=== PATIENT | female | born 1945 | race African-American/Black ===

== ENCOUNTER 2022-07-23 18:34 | Emergency (ER) | payer MEDICARE ==
[~2022-07-23] VITALS: Ht 160 cm; Wt 96.0 kg
[2022-07-23 20:25] LABS: BASOPHILS % 0.9 % (0.0-2.0); HEMATOCRIT. 29.1 % (36.0-48.0); HEMOGLOBIN. 9.4 g/dL (12.0-16.0); LYMPHOCYTES % 19.6 % (20.0-50.0); MEAN CORPUSCULAR HEMOGLOBIN 26.4 pg (28.0-32.0); MEAN CORPUSCULAR VOLUME 82.4 fL (81.0-99.0); MEAN PLATELET VOLUME 9.7 fl (7.4-10.4); NEUTROPHILS % 64.5 % (40.0-76.0); PLATELET 235 x1000/uL (130-400); RED BLOOD CELL COUNT 3.54 mill/uL (4.2-5.4); RED CELL DISTRIBUTION WIDTH 15.9 % (11.6-14.6)
[2022-07-23 20:32] LABS: CHLORIDE 110 mEq/L (98-107)
[2022-07-23 21:32] VITALS: BP 148/74
== END 2022-07-23 21:48 | disposition home or self-care (01) ==
LOC: ER 18:34
DX: I12.9 Hypertensive chronic kidney disease with stage 1 through stage 4 chronic kidney disease, or unspecified chronic kidney disease (principal); E11.22 Type 2 diabetes mellitus with diabetic chronic kidney disease; N18.9 Chronic kidney disease, unspecified; S80.11XA Contusion of right lower leg, initial encounter; X58.XXXA Exposure to other specified factors, initial encounter; Y93.89 Activity, other specified; Y92.89 Other specified places as the place of occurrence of the external cause; Y99.8 Other external cause status
CPT/HCPCS: 36415; 71045; 73590; 80053; 83880; 84443; 84484; 85025; 93005; 99285

== ENCOUNTER 2023-01-15 17:21 | Emergency (ER) | payer MEDICARE, OTHER ==
[~2023-01-15] VITALS: Ht 167.6 cm; Wt 97.0 kg
[2023-01-15 17:47] VITALS: O2SAT 100
[2023-01-15 18:19] LABS: BASOPHILS % 0.9 % (0.0-2.0); EOSINOPHILS % 3.2 % (0.0-5.0); HEMATOCRIT. 33.1 % (36.0-48.0); HEMOGLOBIN. 10.4 g/dL (12.0-16.0); MEAN CORPUSCULAR HEMOGLOBIN 26.1 pg (28.0-32.0); MEAN CORPUSCULAR HGB CONC 31.5 g/dL (31.0-37.0); MEAN CORPUSCULAR VOLUME 82.7 fL (81.0-99.0); MEAN PLATELET VOLUME 10.1 fl (7.4-10.4); MONOCYTES % 10.8 % (2.0-8.0); NEUTROPHILS % 64.1 % (40.0-76.0); PLATELET 263 x1000/uL (130-400); RED CELL DISTRIBUTION WIDTH 15.5 % (11.6-14.6)
[2023-01-15 18:26] LABS: CALCIUM 9.8 mg/dL (8.5-10.1); POTASSIUM 4.3 mEq/L (3.5-5.1)
[2023-01-15 18:33] LABS: CREATININE 1.9 mg/dL (0.6-1.3)
[2023-01-15] MEDS ORDERED: APIX5TAB MT (20:27)
[2023-01-15] MEDS ORDERED: ENOXAPARIN 100MG/ML SYR SUBCUT NR (20:30)
[2023-01-15 20:53] VITALS: BP 156/110; PULSE 61; RESP 12; TEMP 98.5
== END 2023-01-15 20:55 | disposition home or self-care (01) ==
LOC: ER 18:28
DX: R60.0 Localized edema (principal); E11.9 Type 2 diabetes mellitus without complications; I10 Essential (primary) hypertension
CPT/HCPCS: 36415; 80048; 85025; 85379; 93970; 99284

== ENCOUNTER 2024-08-18 18:30 | Emergency (ER) | payer MEDICARE, OTHER ==
[~2024-08-18] VITALS: Ht 167.6 cm; Wt 107.0 kg
[~2024-08-18 18:30] MED LIST: APIX5TAB MT
[2024-08-18 18:41] VITALS: O2SAT 97
[2024-08-18 19:39] LABS: CHLORIDE 108 mEq/L (98-107); POTASSIUM 3.7 mEq/L (3.5-5.1); SODIUM 146 mEq/L (136-145)
[2024-08-18 19:40] LABS: CALCIUM 8.3 mg/dL (8.7-10.4); CARBON DIOXIDE 28 mEq/L (21-32)
[2024-08-18 19:42] LABS: BASOPHILS % 1.1 % (0.0-2.0); EOSINOPHILS % 4.8 % (0.0-5.0); HEMATOCRIT. 32.8 % (36.0-48.0); HEMOGLOBIN. 10.5 g/dL (12.0-16.0); LYMPHOCYTES % 17.7 % (20.0-50.0); MEAN CORPUSCULAR HEMOGLOBIN 27.7 pg (28.0-32.0); MEAN CORPUSCULAR HGB CONC 32.1 g/dL (31.0-37.0); MEAN CORPUSCULAR VOLUME 86.3 fL (81.0-99.0); MEAN PLATELET VOLUME 10.3 fl (7.4-10.4); MONOCYTES % 8.3 % (2.0-8.0); NEUTROPHILS % 68.1 % (40.0-76.0); PLATELET 276 x1000/uL (130-400); RED CELL DISTRIBUTION WIDTH 14.9 % (11.6-14.6); WHITE BLOOD COUNT 6.3 x1000/uL (4.5-11.0)
[2024-08-18 19:45] LABS: CREATININE 2.2 mg/dL (0.6-1.0); GLUCOSE 149 mg/dL (70-105); UREA NITROGEN BLOOD 32 mg/dL (9-23)
[2024-08-18 19:46] LABS: TROPONIN I HIGH SENSITIVITY 24 ng/L (3.0-34)
[2024-08-18] MEDS: CALCIUM 1250MG TABLET (500MG ELEMENTAL CALCIUM) PO NR (21:13)
[2024-08-18 21:37] VITALS: BP 176/40; PULSE 63; RESP 18; TEMP 36.6; O2SAT 97
[2024-09-03] MEDS ORDERED: FINE10TA (22:58)
[2024-09-03] MEDS ORDERED: NIFE20CA8 PO (22:59)
[2024-09-03] MEDS ORDERED: GLIM4TAB36 PO (23:02)
[2024-09-03] MEDS ORDERED: FURO40TA5 PO (23:03)
[2024-09-03] MEDS ORDERED: LOSA100T33 PO (23:04)
[2024-09-03] MEDS ORDERED: FERR325T6 PO (23:05)
[2024-09-03] MEDS ORDERED: DOCU-405 PO (23:14)
[2024-09-06] MEDS ORDERED: METO-385 PO (11:48)
[2024-09-06] MEDS ORDERED: HYDR50TA39 PO (11:48)
== END 2024-08-18 22:05 | disposition left against medical advice (07) ==
LOC: ER 18:30
DX: M79.89 Other specified soft tissue disorders (principal); R06.02 Shortness of breath; E11.9 Type 2 diabetes mellitus without complications; I10 Essential (primary) hypertension; J45.909 Unspecified asthma, uncomplicated; E78.5 Hyperlipidemia, unspecified; Z98.890 Other specified postprocedural states; Z96.659 Presence of unspecified artificial knee joint
CPT/HCPCS: 36415; 71045; 80048; 83880; 84484; 85025; 93005; 99285